=== PATIENT | female | born 1955 | race Caucasian/White ===

== ENCOUNTER 2016-06-01 10:22 | Emergency (ER) | payer OTHER ==
[~2016-06-01] VITALS: Ht 167.6 cm; Wt 115.0 kg
[2016-06-01 10:37] VITALS: TEMP 37.1; Ht 167.6 cm; Wt 115.0 kg
[2016-06-01] MEDS ORDERED: MULT-506 PO (10:50)
--- NOTE | 2016-06-01 11:27 | DIAGNOSTIC IMAGING REPORT ---
RIGHT ANKLE MIN 3 VIEWS ROUTINE CLINICAL HISTORY: right ankle pain Right trauma. Pain. COMPARISON: None. DISCUSSION: Bimalleolar fracture right ankle. Nondisplaced oblique fracture distal fibula. Mildly distracted fracture medial malleolus. No significant disruption of the ankle mortise. Generalized soft tissue edema. Heel spur. Generalized soft tissue edema IMPRESSION: Bimalleolar fracture Electronically signed by: Dilshad Schwab M.D. 06/01/2016 11:26 AM Dictated Date/Time: 06/01/2016 11:25 AM
[2016-06-01] MEDS ORDERED: HYDR-5688 PO (11:49)
[2016-06-01 12:15] VITALS: BP 186/78; PULSE 76; O2SAT 97
--- NOTE | 2016-06-01 17:34 | EMERGENCY ROOM VISIT NOTE ---
ED Visit Note First contact with patient: 10:45 Chief complaint: Right ankle pain. HPI: This 60-year-old white female presents to the emergency room for evaluation of her right ankle. The patient injured the ankle last night when she was walking down the basement steps. She fell down the last 2 steps and twisted the ankle. She is unsure of the exact position. She believes she heard a crack. She thought the ankle would get better overnight, but it has not. Swelling has developed. Since that time, they have had persistent pain over the medial and lateral portion of the ankle. She denies any numbness or tingling. Pain is worse with weight-bearing. She has been walking with a limp. no knee or hip pain. Her accompanies her today. Treatment has consisted of ice provided in the ER. No prior history of significant ankle injury. Pain is 6/10. REVIEW OF SYSTEM: HEENT: No dizziness, visual problems, hearing loss, tinnitus. There is no difficulty swallowing and no oral lesions are present. LYMPH: No adenopathy. PULMONARY: No cough, shortness of breath, sputum production or hemoptysis. CARDIOVASCULAR: No chest pain, palpitations, shortness of breath or peripheral edema. GASTROINTESTINAL: No diarrhea, constipation, nausea, vomiting, or abdominal pain. GENITOURINARY: No dysuria, frequency, urgency or nocturia. NEUROLOGIC: No weakness, muscle tenderness, epilepsy or history of neurological problems. MUSCULOSKELETAL: No history of joint tenderness/swelling. No history of arthritis or arthralgias. SKIN: No rashes or lesions. ENDOCRINE: No history of diabetes, thyroid disorders, abnormal hair growth. PAST MEDICAL HISTORY: Supplemental sheet was reviewed. Previous surgeries: None Medical history: Significant for obesity and hypertension Current medications: Ibuprofen and Zestoretic Allergies: known allergy to Naprosyn Family history: Noncontributory. Social history: . No tobacco use. Employed. PHYSICAL EXAM: Vitals: Afebrile. Reviewed and filed in patient's chart General: Well-developed, well-nourished, middle-aged white female, in obvious discomfort. No acute distress. She is sitting in a wheelchair. Alert and oriented. Skin:Warm and dry with good turgor. No rashes or lesions. No erythema. The patient is not diaphoretic. No abrasions. Edema is present over the ankle and foot. Musculoskeletal: Right ankle evaluation reveals no pain with palpation across the knee or proximal tibia or fibula. There is pain with palpation over the lateral malleolus and the lateral ligaments. There is also pain over the medial malleolus and deltoid ligament. Achilles' tendon is palpated through its entirety and found to be intact and without defect. Normal Gauthier test. No pain with palpation of the calcaneus, fifth metatarsal base, midfoot, forefoot, or toes. Motor function to the toes is intact and unremarkable. Motor function to the ankle is intact but range of motion is limited by pain. Strength is 5/5 for resisted motion. Drawer and tilt testing were not attempted. Neurologic: Gross sensation is intact across all aspects of the foot and ankle via soft touch. Peripheral pulses are 2+. Data: Radiographic images of the ankle were obtained today and were reviewed by me as well as radiology. They are positive for bimalleolar fracture with slight widening of the mortise. IMPRESSION: Right ankle bimalleolar fracture PLAN: The patient was educated regarding today's findings. Conservative care measures were discussed. Patient was placed in a well-padded posterior and coaptation splint for protection. This must remain in place at all times. She will keep it dry. Splint placement was under my direct supervision and neurovascular status was checked before and after splint placement. A walker was provided and walker instruction was reviewed. Strict nonweightbearing on the right side. Gentle toe motion daily. Ice and elevate intermittently over the next 3 days, after which she may switch to moist heat. Lower leg should be elevated at night during sleep. Tylenol and ibuprofen every 6 hours as needed for discomfort. Perception was provided for [place] 5 mg to be used for more severe pain. Cast care precautions were provided. Return to the ER for any acute changes. Follow-up with her orthopedist this week to discuss surgical intervention. Current/Historical Medications Scheduled Fish Oil ([place]-3), 4 CAP PO DAILY Lisinopril/Hctz (Zestoretic 20MG/12.5MG), 1 TAB PO QAM Multivitamin (Multivitamin), 1 TAB PO DAILY Scheduled PRN Hydrocodone/Acetaminophen 5MG/325MG ([place] 5MG/325MG), 1-2 TABLET PO Q6H PRN for Pain Allergies Coded Allergies: Naproxen (Verified Allergy, Intermediate, HIVES, 06/01/16) Vital Signs Date Time Temp Pulse Resp B/P Pulse Ox O2 Delivery O2 Flow Rate FiO2 06/01/16 12:15 76 186/78 97 Room Air 06/01/16 10:37 37.1 76 16 162/92 97 Room Air Departure Information Impression Primary Impression: Bimalleolar fracture of right ankle Dispostion Home / Self-Care Condition GOOD Prescriptions Hydrocodone/Acetaminophen 5MG/325MG ([place] 5MG/325MG) Tab 1-2 TABLET PO Q6H Y for Pain, #20 TAB For Initial Treatment Prov: Sandip Gonzalez,P.A. 06/01/16 Referrals Vlad Canada V.D.O. Forms CARE OF CASTS, WORK / SCHOOL INSTRUCTIONS, HOME CARE DOCUMENTATION FORM, SPECIAL NARCOTICS INSTRUCTIONS, TYLENOL USE, IMPORTANT VISIT INFORMATION Patient Instructions My [facility] Additional Instructions Ice and elevate frequently to reduce pain and swelling Keep the splint on at all times and keep it dry Use your walker for any ambulation-no weight on the right leg Call Dr. Canada tomorrow for follow-up this week Tylenol every 6 hours as needed for mild discomfort Subsequent to [place] one to 2 tablets every 6 hours as needed for more severe pain
[2016-06-02] MEDS ORDERED: [UNRECOGNIZED DRUG - CODE] PO (15:47)
[2016-06-02] MEDS ORDERED: PERCOCET PO (15:47)
[2016-06-04] MEDS ORDERED: ASPEC325 PO (11:52)
[2016-07-14] MEDS ORDERED: OMEG10007 PO ×2 (10:50→17:01)
[2016-07-14] MEDS ORDERED: LISI-787 PO (10:50)
[2016-07-16] MEDS ORDERED: XRL10 PO ×2 (13:03→17:52)
== END 2016-06-01 12:23 | disposition home or self-care (01) ==
LOC: C.EDB 10:26 → C.EDD 12:23
DX: S82.841A Displaced bimalleolar fracture of right lower leg, initial encounter for closed fracture (principal); W10.8XXA Fall (on) (from) other stairs and steps, initial encounter; I10 Essential (primary) hypertension; Z79.899 Other long term (current) drug therapy; Z88.8 Allergy status to other drugs, medicaments and biological substances

== ENCOUNTER → 2016-06-02 | Outpatient (CLI) | payer OTHER ==
[~2016-06-02] MED LIST: ASPEC325 PO; ASPI325T45 PO; HYDR-5688 PO; IBUP1CAP9 PO; LISI-787 PO; LUTE1CAP6 PO; MULT-506 PO; MULTTAB45 PO; OMEG10007 PO; PERCOCET PO; SELE50TA PO; XRL10 PO; [UNRECOGNIZED DRUG - CODE] PO
[2016-06-02 14:42] LABS: BASO % 0.4 %; BASO ABS # 0.03 K/uL (0-0.2); COMPLETE YES; EOS % 1.1 %; HEMATOCRIT 40.9 % (37-47); IG% 0.1 %; LYMPH % 27.6 %; LYMPH ABS # 2.25 K/uL (1.2-3.4); MEAN CELL VOLUME 91.9 fL (80-100); MEAN CORPUSCULAR HGB CONC 33.7 g/dl (32-36); MEAN PLATELET VOLUME 10.9 fL (7.4-10.4); MONO % 5.3 %; NEUT % 65.5 %; PLATELET COUNT 237 K/uL (130-400); RED BLOOD COUNT 4.45 M/uL (4.2-5.4); WHITE BLOOD COUNT 8.15 K/uL (4.8-10.8)
[2016-06-02 15:18] LABS: BLOOD UREA NITROGEN 15 mg/dl (7-18); BUN/CREATININE RATIO 18.2 (10-20); CALCIUM 9.2 mg/dl (8.5-10.1); CARBON DIOXIDE 28 mmol/L (21-32); CHLORIDE 106 mmol/L (98-107); CREATININE 0.85 mg/dl (0.60-1.20); GLUCOSE 99 mg/dl (70-99); POTASSIUM 4.1 mmol/L (3.5-5.1); SODIUM 144 mmol/L (136-145)
== END | disposition home or self-care (01) ==
LOC: C.CPL 13:50
PROVIDERS: ATTEND Orthopaedic Surgery Sports Medicine
DX: Z01.818 Encounter for other preprocedural examination (principal); S82.841A Displaced bimalleolar fracture of right lower leg, initial encounter for closed fracture; X58.XXXA Exposure to other specified factors, initial encounter

== ENCOUNTER → 2016-06-04 | Day surgery (SDC) | payer OTHER ==
[2016-06-02 15:47] VITALS: Ht 174 cm; Wt 113.6 kg
[~2016-06-04] VITALS: Ht 174 cm; Wt 113.6 kg
[~2016-06-04] MED LIST changes: +ATROPINE SULFATE 0.1 MG/ML 5ML SYR IV PRN; +BUPIVACAINE/EPINEPHRINE 0.5% MPF 1:200,000 30 ML VIAL ONE; +CEFAZOLIN 2000 MG/60 ML D5W IV SCH; +CEFAZOLIN SOD 1 GM VIAL IV ONE; +DEXAMETHASONE SOD INJ 4 MG/ML VIAL ONE; +EpHEDrine SULFATE INJ 50 MG/ML AMP IV PRN; +FENTANYL CITRATE INJ 50 MCG/1 ML 2 ML VIAL ONE; -HYDR-5688 PO; +LACTATED RINGER'S 1000ML 1,000 ML IV SCH; +LIDOCAINE HCL 2% 2 ML VIAL (20MG/ML) ONE; +MIDAZOLAM HCL 1 MG/ML 2ML VIAL ONE; -MULT-506 PO; +ONDANSETRON INJ 2 MG/ML 2 ML VIAL ONE; +OXYCODONE/ACETAMINOPHEN 5-325 TAB PO PRN; +PROPOFOL IV EMULSION 10 MG/ML 20 ML VIAL IV ONE; +SODIUM CHLORIDE 0.9% 1000ML 1,000 ML IV SCH
--- NOTE | 2016-06-04 10:08 | History & Physical Bridge - SC ---
H&P Re-Evaluation Bridge Note: I have examined the patient, reviewed the History & Physical and in the interval since the performance of the History & Physical I have noted the following changes of clinical significance: No changes noted
--- NOTE | 2016-06-04 11:53 | [facility] Post Operative Brief Note ---
Immediate Operative Summary Operative Date Jun 04, 2016. Pre-Operative Diagnosis Right Ankle Bimalleolar Fracture Post-Operative Diagnosis Same Procedure(s) Performed Right Ankle Open Reduction Internal Fixation - Bimalleolar ankle fracture Surgeon Dr. Parr Electrocardiograph Operator Surgeon(s) Nora Hernandez PA-C Estimated Blood Loss 20 ml Findings Bimalleolar ankle fracture Specimens None Anesthesia General Complication(s) None Disposition Recovery Room / PACU
--- NOTE | 2016-06-04 11:54 | Discharge Instructions-SurgCtr ---
Discharge Instructions Visit Reason for Visit: Bi Malleolar Fracture Right Ankle Discharge Discharge Diagnosis / Problem: bimalleolar ankle fx, right Discharge Goals Goal(s): Improve function, Therapeutic intervention Activity Recommendations Activity Limitations: per Instructions/Follow-up section Weightbearing Status: Right non-weightbearing Anesthesia . Post Anesthesia Instructions: If you have had General Anesthesia or IV Sedation: * Do not drive today. * Resume driving when surgeon permits. * Do not make important decisions or sign legal documents today. * Call surgeon for: 1. Temperature elevations greater than 101 degrees F. 2. Uncontrollable pain. 3. Excessive bleeding. 4. Persistent nausea and vomiting. 5. Medication intolerance (nausea, vomiting or rash). * For nausea and vomiting use only clear liquids such as: tea, soda, bouillon until nausea subsides, then gradually increase diet as tolerated. * If you have any concerns or questions, call your surgeon's office. If physician is unavailable and it is an emergency, call 911 or go to the nearest emergency room. . Instructions / Follow-Up Instructions / Follow-Up MEDICATIONS: * Resume previous medications unless instructed otherwise by your surgeon. * Always take pain medication on a full stomach or with food to avoid upset stomach. * Do not drink alcohol or drive while taking narcotics. * Ibuprofen or Tylenol may be taken if narcotic not needed. SPECIAL CARE INSTRUCTIONS: __ None _x_ Keep extremity elevated and iced x 48 hours; apply ice 20-30 minutes 8-10 times/day. May remove at night. __ Crutches __ May discard when able __ Brace/Post-op shoe __ 24 hrs/day __ Remove at night _x_ Dressing _x_ Maintain until seen in office, may shower with plastic over site __ Remove dressings in 24-48 hours and then may shower __ Cover incisions with band-aids after showering __ Do not remove steri-strips Call physician if chills or temperature rises above 102 degrees or pain unrelieved by prescribed pain medications. Office [phone] follow up in 2 weeks Diet Recommendations Home Diet: resume previous diet Procedures Procedures Performed: Right Ankle Open Reduction Internal Fixation Pending Studies Studies pending at discharge: no Medical Emergencies . Who to Call and When: Medical Emergencies: If at any time you feel your situation is an emergency, please call 911 immediately. . Non-Emergent Contact Non-Emergency issues call your: Primary Care Provider, Surgeon . . "Provider Documentation" section prepared by Gilbert Hernandez.
[2016-06-04] MEDS: FENTANYL CITRATE INJ 50 MCG/1 ML 2 ML VIAL IV PRN ×3 (12:05→12:21)
--- NOTE | 2016-06-04 12:28 | Anesthesia Progress Nt - [facility] ---
Anesthesia Post Op Note Date & Time Jun 04, 2016 at 12:29 Vital Signs Pain Intensity: 4 Vital Signs Past 12 Hours Date Time Temp Pulse Resp B/P Pulse Ox O2 Delivery O2 Flow Rate FiO2 06/04/16 11:48 36.6 91 16 166/94 100 Mask 6 06/04/16 09:29 36.9 94 16 172/106 98 Room Air Notes Mental Status: alert / awake / arousable, participated in evaluation Pt Amnestic to Procedure: Yes Nausea / Vomiting: adequately controlled Pain: adequately controlled Airway Patency, RR, SpO2: stable & adequate BP & HR: stable & adequate Hydration State: stable & adequate Anesthetic Complications: no major complications apparent
[2016-06-04 12:39] VITALS: TEMP 36.6
[2016-06-04 13:29] VITALS: BP 138/76; PULSE 91; O2SAT 95
--- NOTE | 2016-06-04 14:20 | OPERATIVE REPORT ---
DATE OF OPERATION: 06/04/2016 PREOPERATIVE DIAGNOSIS: Right bimalleolar ankle fracture. POSTOPERATIVE DIAGNOSIS: Same. PROCEDURE PERFORMED: Open reduction and internal fixation of right bimalleolar ankle fracture. SURGEON: Scotty Parr M.D. LIFE EDUCATOR: Gilbert Hernandez PA-C. COMPLICATIONS: None. ESTIMATED BLOOD LOSS: 20 mL. TOURNIQUET TIME: 54 minutes at 300 mmHg. ANESTHESIA: General. SPECIMENS: None. OPERATIVE INDICATIONS: The patient is a 60-year-old female who injured her ankle over the weekend. She fell down a couple steps. She had acute onset of pain. She waited until the next day and went to the ER. X-ray revealed a bimalleolar ankle fracture. She was splinted and referred to our clinic. The patient is indicated for surgical treatment. OPERATIVE IMPLANTS: Medial sided implants consisted of: 1. 4.0 partially threaded long threaded cannulated screws with washers x2. Lateral side implants consisted of: 1. A Synthes 6-hole stainless steel 1/3 semitubular plate. 2. A 4.0 fully threaded cancellous screws x 2. 3. At 3.5 fully threaded cortical screws x3. 4. A 4.0 partially threaded cancellous screw x1. OPERATIVE PROCEDURE: The patient taken to the operating room, identified and placed on the operating table in supine position. All contact areas were appropriately padded. IV antibiotics were provided by the anesthesia team. A general anesthetic was implemented by anesthesia team. Right thigh tourniquet was then placed. The splint on the right lower extremity was then removed. I then scrubbed the entire leg up with Hibiclens. We then prepped it with ChloraPrep and then draped the foot and ankle out in a sterile fashion. The right leg was elevated and exsanguinated with Esmarch and tourniquet was placed at 300 mmHg. Attention was first drawn to the medial side. A slightly curved radial curvilinear incision was made directly over the medial malleolus. Sharp dissection was carried down through the subcutaneous tissues taking great care to protect the saphenous vein and nerve. An incision was made in the periosteum. The fracture site was easily visible. There was some periosteum in the fracture site which we had to remove. We removed the clot from the fracture site. I irrigated the wound extensively. I then reduced this and held it with a reduction clamp and placed 2 wires across the fracture site. This was verified fluoroscopically. I then placed 2 partially threaded long threaded cannulated screws over the 2 wires in a parallel fashion perpendicular to the fracture site. We did use washers with both of these screws to maximize compression as her bone was a little bit soft. I got good purchase. X-ray was checked and hardware was in appropriate position. Attention was then drawn toward the lateral side. A direct lateral approach to the fibula was then performed through a longitudinal incision over the fibula. Sharp dissection was carried out through the subcutaneous tissue directly down to the fibula. The fracture was easily identified. It was cleaned of clot. I then reduced this and held it with a reduction clamp. I fixed it with a single 4.0 partially threaded cancellous screw placed in a lag fashion across the fracture site from anterior to posterior. This provided excellent compression. I then contoured a 6-hole 1/3 semitubular plate to the lateral fibula and fixed it proximally with three 3.5 fully threaded cortical screws and then distally with two 4.0 fully threaded cancellous screws. X-ray was brought in. All hardware was appropriately positioned. I stressed the ankle and it was stable. Attention was then drawn toward closing. The wound was irrigated with copious amounts of normal saline. I did inject locally with 30 mL of 0.5% Marcaine with epinephrine. The periosteum over the fibula plate was closed with 2-0 Vicryl suture in a buried interrupted fashion. The tourniquet was then let down for final tourniquet time of 54 minutes. Hemostasis was assured with use of electrocautery. The subcutaneous tissues of both wounds were then closed with 2-0 Vicryl suture in a buried interrupted fashion. Skin was closed with 3-0 nylon suture in a horizontal mattress fashion. The leg was then cleaned and dried and a sterile dressing of Xeroform, 4 x 4, sterile cast padding and a well-padded posterior and stirrup splint were applied. The patient then brought out of general anesthesia and transferred to the recovery room in stable condition. The patient tolerated the procedure with no complications. All needle and sponge counts were correct at the end of the operation. I attest to the content of the Intraoperative Record and any orders documented therein. Any exceptions are noted below. ROMAND
== END | disposition home or self-care (01) ==
LOC: X.SURG 09:15
PROVIDERS: ATTEND Orthopaedic Surgery Sports Medicine
DX: S82.841A Displaced bimalleolar fracture of right lower leg, initial encounter for closed fracture (principal); W10.9XXA Fall (on) (from) unspecified stairs and steps, initial encounter; I10 Essential (primary) hypertension; E66.9 Obesity, unspecified; Z68.38 Body mass index [BMI] 38.0-38.9, adult

== ENCOUNTER 2016-07-14 12:45 | Inpatient (IN) | payer OTHER ==
[~2016-07-14] VITALS: Ht 172.7 cm; Wt 117.8 kg
[~2016-07-14 12:45] MED LIST changes: -ASPI325T45 PO; -ATROPINE SULFATE 0.1 MG/ML 5ML SYR IV PRN; -BUPIVACAINE/EPINEPHRINE 0.5% MPF 1:200,000 30 ML VIAL ONE; -CEFAZOLIN 2000 MG/60 ML D5W IV SCH; -CEFAZOLIN SOD 1 GM VIAL IV ONE; -DEXAMETHASONE SOD INJ 4 MG/ML VIAL ONE; -EpHEDrine SULFATE INJ 50 MG/ML AMP IV PRN; -FENTANYL CITRATE INJ 50 MCG/1 ML 2 ML VIAL ONE; -IBUP1CAP9 PO; -LACTATED RINGER'S 1000ML 1,000 ML IV SCH; -LIDOCAINE HCL 2% 2 ML VIAL (20MG/ML) ONE; -LUTE1CAP6 PO; -MIDAZOLAM HCL 1 MG/ML 2ML VIAL ONE; -MULTTAB45 PO; -ONDANSETRON INJ 2 MG/ML 2 ML VIAL ONE; -OXYCODONE/ACETAMINOPHEN 5-325 TAB PO PRN; -PROPOFOL IV EMULSION 10 MG/ML 20 ML VIAL IV ONE; -SELE50TA PO; -SODIUM CHLORIDE 0.9% 1000ML 1,000 ML IV SCH; -XRL10 PO
--- NOTE | 2016-07-14 13:37 | EMERGENCY ROOM VISIT NOTE ---
History First contact with patient: 12:55 Chief Complaint: LEG PAIN,LEG INJURY Stated Complaint: POSSIBLE BLOOD CLOT IN R CAST LEG History of Present Illness The patient is a 60 year old female who presents to the Emergency Room with complaints of right leg pain. The patient had an ankle fracture 4 weeks ago. She underwent surgery by Dr. Parr. She has been doing very well. She states that over the last several days she noticed pain and tenderness to the right medial thigh. The patient denies any pain at rest. The pain is worse with movement. She reports a history of superficial thrombophlebitis 10 years ago. She denies any redness, fevers, drainage. She denies any numbness or tingling. She denies any significant pain in the ankle. She denies any chest pain or trouble breathing. Review of Systems A 10 system review of systems was completed with positives and pertinent negatives listed in the HPI. Past Medical/Surgical History Medical Problems: (1) Hypertension Bimalleolar fracture of right ankle Social History Smoking Status: Never Smoker Housing Status: lives with family Current/Historical Medications Scheduled Fish Oil ([place]-3), 4 CAP PO QAM Lisinopril/Hctz (Zestoretic 20MG/12.5MG), 1 TAB PO QAM Lutein (Lutein), 1 TAB PO DAILY Allergies Coded Allergies: Naproxen (Verified Allergy, Intermediate, HIVES, 07/14/16) Physical Exam Vital Signs Date Time Temp Pulse Resp B/P Pulse Ox O2 Delivery O2 Flow Rate FiO2 07/14/16 14:58 90 18 168/84 100 Room Air 07/14/16 12:50 36.5 74 18 170/88 98 Room Air Physical Exam VITALS: Vitals are noted on the nurse's note and reviewed by myself. Vital signs stable. The patient is afebrile. She is not tachycardic or tachypneic. Her oxygen saturation is 98% on room air. GENERAL: This is a 60-year-old female, in no acute distress, nondiaphoretic, well-developed well-nourished. SKIN: The right leg is in a cast to the mid calf. The skin was without rashes, erythema, edema, or bruising. There is no tenting of the skin. Capillary reflex less than 2 seconds. HEAD: Normocephalic atraumatic. EARS: The external ears are normal in appearance. EYES: Pupils equal round and reactive to light and accommodation. Conjunctivae without injection, sclerae without icterus. Extraocular movements intact. NOSE: Patent, turbinates without inflammation or discharge. MOUTH: Mucous membranes moist. Tonsils are not enlarged. Pharynx without erythema or exudate. Uvula midline. Airway patent. Tongue does not deviate. NECK: Supple without nuchal rigidity. No JVD. HEART: Regular rate and rhythm without murmurs gallops or rubs. LUNGS: Clear to auscultation bilaterally without wheezes, rales or rhonchi. No retractions or accessory muscle use. MUSCULOSKELETAL: No muscle atrophy, erythema, or edema noted. There is a cast on the right leg to the mid calf. There is no erythema, warmth or palpable cord in the area of pain. She does have pain with adduction against resistance. There is no pain with abduction. There is no pain, tenderness or swelling of the knee or the calf that is visible. NEURO: Patient was alert and oriented to person place and time. Normal sensation to light and sharp touch.No focal neurological deficits. Medical Decision & Procedures ER Provider Diagnostic Interpretation: RIGHT LOWER EXTREMITY VENOUS DOPPLER HISTORY: right medial thigh pain Right COMPARISON STUDY: None. FINDINGS: The right calf veins were obscured by the patient's overlapping cast. There are superficial thrombosed veins within the right popliteal fossa. Near occlusive thrombus seen within the right superficial femoral and right popliteal veins. The right proximal greater saphenous vein is also thrombosed. The right common femoral vein is patent. IMPRESSION: Superficial and deep vein thrombosis within the right lower extremity as described above. Laboratory Results Test 07/14/16 16:23 ED Course The patient was seen and examined. Previous visits were reviewed. The patient had surgery on her ankle 5 weeks ago. She states that since mid week last week he has had pain in the right lower extremity into the right medial thigh. She has a history of superficial thrombophlebitis in the remote past. She underwent ultrasound which reveals extensive right lower extremity DVT. She does not have any chest pain, trouble breathing, hypoxia or tachycardia. Due to the extensive nature of the DVT, she would benefit from further evaluation and management in the hospital. At this time, laboratory studies and IV were ordered. [facility] the patient. The patient was also seen and examined by who agrees with the assessment and treatment plan. Medical Decision The differential diagnosis includes DVT, superficial, phlebitis, muscle strain, among others Impression Primary Impression: DVT (deep venous thrombosis) Departure Information Referrals Dilshad Atkinson M.D. (PCP) Patient Instructions My [facility] Problem Qualifiers Primary Impression: DVT (deep venous thrombosis)
--- NOTE | 2016-07-14 15:42 | DIAGNOSTIC IMAGING REPORT ---
RIGHT LOWER EXTREMITY VENOUS DOPPLER HISTORY: right medial thigh pain Right COMPARISON STUDY: None. FINDINGS: The right calf veins were obscured by the patient's overlapping cast. There are superficial thrombosed veins within the right popliteal fossa. Near occlusive thrombus seen within the right superficial femoral and right popliteal veins. The right proximal greater saphenous vein is also thrombosed. The right common femoral vein is patent. IMPRESSION: Superficial and deep vein thrombosis within the right lower extremity as described above. Electronically signed by: Alexey Ybarra M.D. 07/14/2016 3:41 PM Dictated Date/Time: 07/14/2016 3:39 PM
[2016-07-14] MEDS ORDERED: LUTE1CAP6 PO (15:47)
--- NOTE | 2016-07-14 16:00 | EMERGENCY ROOM VISIT NOTE ---
ED Visit Note First contact with patient: 15:53 The patient was seen and examined with Lori Young PA-C. I agree with the history, physical and findings. Please see the note for disposition and details.
[2016-07-14 16:46] LABS: BASO % 0.2 %; BASO ABS # 0.02 K/uL (0-0.2); COMPLETE YES; EOS % 1.4 %; HEMATOCRIT 40.8 % (37-47); IG% 0.3 %; LYMPH ABS # 3.03 K/uL (1.2-3.4); MEAN CELL VOLUME 93.2 fL (80-100); MEAN CORPUSCULAR HEMOGLOBIN 31.5 pg (25-34); MEAN CORPUSCULAR HGB CONC 33.8 g/dl (32-36); MEAN PLATELET VOLUME 10.5 fL (7.4-10.4); NEUT % 64.1 %; PLATELET COUNT 251 K/uL (130-400); RED BLOOD COUNT 4.38 M/uL (4.2-5.4); WHITE BLOOD COUNT 10.11 K/uL (4.8-10.8)
[2016-07-14 16:56] LABS: PROTHROMBIN TIME (PATIENT) 10.4 SECONDS (9.0-12.0)
[2016-07-14] MEDS ORDERED: ASPI325T45 PO (17:01)
[2016-07-14] MEDS ORDERED: OMEG10007 PO (17:01)
[2016-07-14] MEDS ORDERED: SELE50TA PO (17:01)
[2016-07-14] MEDS ORDERED: MULTTAB45 PO (17:01)
[2016-07-14] MEDS ORDERED: IBUP1CAP9 PO (17:01)
[2016-07-14 17:07] LABS: BUN/CREATININE RATIO 20.7 (10-20); CALCIUM 9.2 mg/dl (8.5-10.1); CREATININE 0.87 mg/dl (0.60-1.20); POTASSIUM 3.9 mmol/L (3.5-5.1)
[2016-07-14] MEDS ORDERED: ONDANSETRON INJ 2 MG/ML 2 ML VIAL IV PRN (17:15)
[2016-07-14] MEDS ORDERED: HEPARIN SOD (PORCINE) 1000 UNIT/ML 10 ML VIAL ONE (18:02)
[2016-07-14] MEDS ORDERED: HEPARIN 25000 UNIT/500 ML D5W ONE (18:02)
--- NOTE | 2016-07-14 18:03 | History and Physical ---
History & Physical Date & Time of Service: Jul 14, 2016 at 17:02 Chief Complaint: Possible Blood Clot In R Cast Leg Primary Care Physician: Dilshad Atkinson M.D. History of Present Illness Source: patient, clinic records This is a 60 year old female with PMH of superficial thrombophlebitis, GERD, anxiety, who presents to the ED for RLE discomfort. Patient recently underwent ORIF of right ankle fracture by Dr. Parr on 06/04/16. She was initially non- weight bearing x3 weeks but now ambulating around her house in a walking cast. Pt reports for past 5 days has discomfort in right inner thigh. She tried using compresses, PRN ibuprofen, and aspirin 650 mg daily. She initially was concerned for superficial thrombophlebitis which she had 5-7 episodes in the past. She is unsure if she was tested for hypercoagulable state. Had 1 episode trace red blood in the stool today after straining for hard BM last night. No black stool. States bowel habit alternates constipation and diarrhea. Reports h/ o hemorrhoids. Last colonoscopy in 2007 with hyperplastic polyps. Pt also reports rhinorrhea, itchy watery eyes, dry cough in the mornings attributed to seasonal allergies. Patient denies dizziness, fever, chills, chest pain, SOB, abdominal pain, nausea, vomiting, urinary changes, lower extremity edema. Past Medical/Surgical History Medical Problems: (1) Anxiety Status: Chronic (2) Benign neoplasm of colon Status: Chronic (3) Depression Status: Chronic (4) S/P ORIF (open reduction internal fixation) fracture Permanent Comment: right ankle 06/04/16 Dr. Parr Status: Chronic (5) Superficial thrombophlebitis Status: Chronic Surgical Problems: (1) S/P colonoscopy with polypectomy Status: Chronic (2) S/P dilation and curettage Status: Chronic Family History Asthma Hypertension MOTHER BROTHER SISTER Denies family history of VTE. Social History Smoking Status: Never Smoker Alcohol Use: none Drug Use: none Marital Status: Housing status: lives with family Multi-Drug Resistant Organisms History of MDRO: No Allergies Coded Allergies: Naproxen (Verified Allergy, Intermediate, HIVES, 07/14/16) Home Medications Scheduled Aspirin (Aspirin), 650 MG PO DAILY Fish Oil (Ione-3), 6 CAP PO DAILY Lisinopril/Hctz (Zestoretic 20MG/12.5MG), 1 TAB PO QAM Lutein (Lutein), 1 TAB PO DAILY Multiple Vitamin (Multiple Vitamin), 1 TAB PO DAILY Selenium (Ra Selenium), 3 TABS PO DAILY Scheduled PRN Ibuprofen (Ibuprofen), 400 MG PO Q6 PRN for Pain Review of Systems Ten point ROS performed with pertinent positives and negatives noted in HPI. Physical Exam Vital Signs Date Time Temp Pulse Resp B/P Pulse Ox O2 Delivery O2 Flow Rate FiO2 07/14/16 14:58 90 18 168/84 100 Room Air 07/14/16 12:50 36.5 74 18 170/88 98 Room Air General Appearance: + obese, + pertinent finding (alert cooperative mildly anxious 60 year old female with at bedside who is supportive) Head: normocephalic, atraumatic Eyes: normal inspection, PERRL ENT: hearing grossly normal, TMs normal, pharynx normal Neck: supple, trachea midline Respiratory/Chest: lungs clear, normal breath sounds, no respiratory distress, no accessory muscle use Cardiovascular: regular rate, rhythm, no murmur Abdomen/GI: normal bowel sounds, non tender, soft Extremities/Musculoskelatal: + pertinent finding (no reproducible tenderness on right upper thigh. no palpable cord. no swelling noted of right upper leg. right lower leg cast in place. LLE no edema or calf tenderness. ) Neurologic/Psych: alert, normal mood/affect, oriented x 3, + pertinent finding (grossly nonfocal ) Skin: normal color, warm/dry Diagnostics Laboratory Results Results Past 24 Hours Test 07/14/16 16:23 Range/Units White Blood Count 10.11 4.8-10.8 K/uL Red Blood Count 4.38 4.2-5.4 M/uL Hemoglobin 13.8 12.0-16.0 g/dL Hematocrit 40.8 37-47 % Mean Corpuscular Volume 93.2 80-100 fL Mean Corpuscular Hemoglobin 31.5 25-34 pg Mean Corpuscular Hemoglobin Concent 33.8 32-36 g/dl Platelet Count 251 130-400 K/uL Mean Platelet Volume 10.5 7.4-10.4 fL Neutrophils (%) (Auto) 64.1 % Lymphocytes (%) (Auto) 30.0 % Monocytes (%) (Auto) 4.0 % Eosinophils (%) (Auto) 1.4 % Basophils (%) (Auto) 0.2 % Neutrophils # (Auto) 6.49 1.4-6.5 K/uL Lymphocytes # (Auto) 3.03 1.2-3.4 K/uL Monocytes # (Auto) 0.40 0.11-0.59 K/uL Eosinophils # (Auto) 0.14 0-0.5 K/uL Basophils # (Auto) 0.02 0-0.2 K/uL RDW Standard Deviation 44.8 36.4-46.3 fL RDW Coefficient of Variation 13.2 11.5-14.5 % Immature Granulocyte % (Auto) 0.3 % Immature Granulocyte # (Auto) 0.03 0.00-0.02 K/uL Prothrombin Time 10.4 9.0-12.0 SECONDS Prothromb Time International Ratio 1.0 0.9-1.1 Activated Partial Thromboplast Time 27.1 21.0-31.0 SECONDS Partial Thromboplastin Ratio 1.0 Diagnostic Radiology RIGHT LOWER EXTREMITY VENOUS DOPPLER HISTORY: right medial thigh pain Right COMPARISON STUDY: None. FINDINGS: The right calf veins were obscured by the patient's overlapping cast. There are superficial thrombosed veins within the right popliteal fossa. Near occlusive thrombus seen within the right superficial femoral and right popliteal veins. The right proximal greater saphenous vein is also thrombosed. The right common femoral vein is patent. IMPRESSION: Superficial and deep vein thrombosis within the right lower extremity as described above. Impression Assessment and Plan EXTENSIVE RLE DVT Most likely provoked by recent ORIF right ankle 06/04/[address] Parr Hypercoagulable workup pending Start on IV heparin Will likely need 3 months of anticoagulation May be candidate for factor Xa inhibitor RECENT ANKLE SURGERY Currently in walking cast Consult Dr. Parr HYPERTENSION BP elevated in ER likely due to anxiety Continue lisinopril-HCTZ ANXIETY/ DEPRESSION Not on medication currently FULL CODE Patient seen in collaboration with Dr. Weldon. Please see his addendum.
--- NOTE | 2016-07-14 18:19 | Progress Note ---
Progress Note Date of Service Jul 14, 2016. Progress Note ATTENDING ADDENDUM care coordinated with EMMANUEL Hill please refer to her notes for full details, I agree with her notes patient seen and examined, records reviewed by myself as well on exam, patient seen sitting up in bed, comfortable has mild right inguinal discomfort, no leg pain denies chest pain, dyspnea, palpitations, dizziness no other symptoms VS noted and reviewed oriented x 3, not in distress, speaks in sentences with no effort nor accessory muscle use normal rate, regular rhythm, no murmurs clear breath sounds bilaterally non distended, soft, nontender right leg: no swelling, erythema, tenderness cast in place left leg: no swelling, erythema, tenderness no bipedal edema, erythema, warmth no neuro deficits Hg 13.8 Crea 0.87 Leg US: FINDINGS: The right calf veins were obscured by the patient's overlapping cast. There are superficial thrombosed veins within the right popliteal fossa. Near occlusive thrombus seen within the right superficial femoral and right popliteal veins. The right proximal greater saphenous vein is also thrombosed. The right common femoral vein is patent. IMPRESSION: Superficial and deep vein thrombosis within the right lower extremity as described above. ASSESSMENT/PLAN> DVT RIGHT POPLITEAL, GREATER SAPHENOUS VEINS s/p Ankle Surgery 05/2016 (+) history of DVT- mother (post op) hypercoagulable work up pending Heparin standard with bolus patient prefers to be transitioned to New oral anticoagulants Dr. Parr - Tim consulted as well HYPERTENSION improving continue HCTZ/Lisinopril other diagnoses and plan of care as per EMMANUEL Hill's notes Ad Weldon MD
[2016-07-14 19:43] VITALS: BP 175/81; PULSE 97; TEMP 37; O2SAT 99
[2016-07-14 21:35] VITALS: Ht 172.7 cm; Wt 117.8 kg
[2016-07-14 22:30] VITALS: BP 160/90
[2016-07-14 22:53] VITALS: BP 143/83; PULSE 78; TEMP 36.8; O2SAT 97
[2016-07-14] MEDS: ACETAMINOPHEN 325 MG TAB PO PRN (22:58)
[2016-07-14] MEDS: HEPARIN 25,000 UNIT/500ML D5W 500 ML IV PRN (23:01)
[2016-07-14] MEDS ORDERED: DiphenhydrAMINE HCL 12.5MG/5 ML UDC PO STA (23:01)
[2016-07-15 01:22] LABS: PARTIAL THROMBOPLASTIN RATIO 2.2
[2016-07-15] MEDS: ACETAMINOPHEN 325 MG TAB PO PRN ×2 (05:45→17:08)
[2016-07-15] MEDS: HEPARIN 25,000 UNIT/500ML D5W 500 ML IV PRN ×4 (06:54→23:27)
[2016-07-15 07:19] VITALS: BP 147/84; PULSE 73; TEMP 36.7; O2SAT 98
[2016-07-15 08:09] LABS: HEMATOCRIT 37.3 % (37-47); MEAN CELL VOLUME 91.2 fL (80-100); MEAN CORPUSCULAR HEMOGLOBIN 30.6 pg (25-34); MEAN CORPUSCULAR HGB CONC 33.5 g/dl (32-36); MEAN PLATELET VOLUME 10.1 fL (7.4-10.4); PLATELET COUNT 240 K/uL (130-400); RED BLOOD COUNT 4.09 M/uL (4.2-5.4); WHITE BLOOD COUNT 8.28 K/uL (4.8-10.8)
[2016-07-15] MEDS: LISINOPRIL/HCTZ 20/12.5MG TAB PO SCH (10:01)
[2016-07-15] MEDS: MULTIVITAMIN TAB PO SCH (10:01)
--- NOTE | 2016-07-15 13:27 | Progress Note ---
Internal Med Progress Note Date of Service: Jul 15, 2016. Provider Documentation: SUBJECTIVE: The patient was seen and examined Right leg pain is much better Denies any Chest pain,palpitation.SOB OBJECTIVE: Vital Signs-as noted below Exam: General-No distress Eyes-normal ENT-normal Neck-Supple Lungs-clear to ausucltate bilaterally Heart-Regular,no murmur Abdomen-Benign,no masses,bowel sound present Extremities-Right Leg Cast Neuro-AAOx3 Lab data as noted below. ASSESSMENT & PLAN: EXTENSIVE RLE DVT No family history and or past h/o thrombosis Most likely provoked by recent ORIF right ankle 06/04/[address] Parr Hypercoagulable workup pending Start on IV heparin Will likely need 3 months of anticoagulation Clinically better Wants to try newer oral anticoagulant -Pros and cons discussed will await approval RECENT ANKLE SURGERY Likely the provocation factor for DVT Currently in walking cast Consult Dr. Parr HYPERTENSION BP elevated in ER likely due to anxiety Continue lisinopril-HCTZ BP remains stable ANXIETY/ DEPRESSION Not on medication currently FULL CODE Vital Signs: Date Time Temp Pulse Resp B/P Pulse Ox O2 Delivery O2 Flow Rate FiO2 07/15/16 08:36 Room Air 07/15/16 07:19 36.7 73 16 147/84 98 Room Air 07/14/16 23:40 Room Air 07/14/16 22:53 36.8 78 16 143/83 97 Room Air 07/14/16 22:30 160/90 07/14/16 21:35 Room Air 07/14/16 19:43 37.0 97 18 175/81 99 Room Air 07/14/16 19:14 97 20 180/105 97 Room Air 07/14/16 17:59 108 20 145/115 98 Room Air 07/14/16 16:25 82 20 100 Room Air 07/14/16 14:58 90 18 168/84 100 Room Air Lab Results: Results Past 24 Hours Test 07/14/16 16:23 07/15/16 00:50 07/15/16 07:43 Range/Units White Blood Count 10.11 8.28 4.8-10.8 K/uL Red Blood Count 4.38 4.09 4.2-5.4 M/uL Hemoglobin 13.8 12.5 12.0-16.0 g/dL Hematocrit 40.8 37.3 37-47 % Mean Corpuscular Volume 93.2 91.2 80-100 fL Mean Corpuscular Hemoglobin 31.5 30.6 25-34 pg Mean Corpuscular Hemoglobin Concent 33.8 33.5 32-36 g/dl Platelet Count 251 240 130-400 K/uL Mean Platelet Volume 10.5 10.1 7.4-10.4 fL Neutrophils (%) (Auto) 64.1 % Lymphocytes (%) (Auto) 30.0 % Monocytes (%) (Auto) 4.0 % Eosinophils (%) (Auto) 1.4 % Basophils (%) (Auto) 0.2 % Neutrophils # (Auto) 6.49 1.4-6.5 K/uL Lymphocytes # (Auto) 3.03 1.2-3.4 K/uL Monocytes # (Auto) 0.40 0.11-0.59 K/uL Eosinophils # (Auto) 0.14 0-0.5 K/uL Basophils # (Auto) 0.02 0-0.2 K/uL RDW Standard Deviation 44.8 43.7 36.4-46.3 fL RDW Coefficient of Variation 13.2 13.1 11.5-14.5 % Immature Granulocyte % (Auto) 0.3 % Immature Granulocyte # (Auto) 0.03 0.00-0.02 K/uL Prothrombin Time 10.4 9.0-12.0 SECONDS Prothromb Time International Ratio 1.0 0.9-1.1 Activated Partial Thromboplast Time 27.1 57.5 52.7 21.0-31.0 SECONDS Partial Thromboplastin Ratio 1.0 2.2 2.0 Sodium Level 141 136-145 mmol/L Potassium Level 3.9 3.5-5.1 mmol/L Chloride Level 103 98-107 mmol/L Carbon Dioxide Level 28 21-32 mmol/L Anion Gap 10.0 3-11 mmol/L Blood Urea Nitrogen 18 7-18 mg/dl Creatinine 0.87 0.60-1.20 mg/dl Est Creatinine Clear Calc Drug Dose 92.8 ml/min Estimated GFR () 83.9 Estimated GFR (Non- 72.4 BUN/Creatinine Ratio 20.7 10-20 Random Glucose 92 70-99 mg/dl Calcium Level 9.2 8.5-10.1 mg/dl Total Bilirubin 0.2 0.2-1 mg/dl Aspartate Amino Transf (AST/SGOT) 18 15-37 U/L Alanine Aminotransferase (ALT/SGPT) 24 12-78 U/L Alkaline Phosphatase 89 45-117 U/L Total Protein 8.2 6.4-8.2 gm/dl Albumin 4.0 3.4-5.0 gm/dl Globulin 4.2 2.5-4.0 gm/dl Albumin/Globulin Ratio 1.0 0.9-2 Folate 21.89 >5.38 ng/mL
[2016-07-15 15:03] VITALS: BP 137/80; PULSE 77; TEMP 36.7; O2SAT 99
--- NOTE | 2016-07-15 16:45 | ORTHOPEDIC CONSULTATION REPORT ---
DATE OF CONSULTATION: 07/15/2016 CHIEF COMPLAINT: Recent ORIF of a right ankle fracture, now hospitalized with a DVT. HISTORY OF PRESENT ILLNESS: The patient is a 60-year-old female. She is now about approximately 5 weeks out from an ORIF of right ankle fracture. She was treated with aspirin for about 1 month postop. She has been ambulating, weightbearing as tolerated in a short leg cast since we last saw her in the office. She, however, about 6 days ago developed some pain and discomfort in her thigh area. She has been taking ibuprofen some and came to the hospital yesterday she was found to have a superficial and deep vein thrombosis of the right lower extremity. She states she really is not having any ankle pain at this time. She has been started on heparin. She has no other complaints at this time. PAST MEDICAL HISTORY AND SURGICAL HISTORY: Reviewed and includes anxiety, history of a benign colon lesion, depression, ORIF of a right ankle fracture, superficial phlebitis, colonoscopy with polypectomy and a D\T\C. FAMILY HISTORY: Reviewed and includes asthma, hypertension. SOCIAL HISTORY: She is , lives with her family. Denies alcohol, tobacco or drug use. ALLERGIES: NAPROXEN. MEDICATIONS: Include aspirin, fish oil, lisinopril/HCTZ, lutein, multivitamins, selenium and ibuprofen. REVIEW OF SYSTEMS: Noncontributory. PHYSICAL EXAMINATION: The patient seen and examined by Dr. Parr today as well. Cast of the right lower is fitting appropriately. She is able to move her toes appropriately with flexion and extension. Neurovascularly intact. IMPRESSION: A 60-year-old female, now approximately 5 weeks status post open reduction internal fixation of a right ankle fracture with right lower extremity deep vein thrombosis. PLAN: She has been admitted to the hospitalist service, started on heparin and it does appear she will be anticoagulated now for about 3 months. Regarding her ankle, would like to leave her on a cast on. At this point, she is scheduled to follow up in next week in clinic for cast removal and x-rays of the right ankle. She can continue weightbearing as tolerated on the right lower extremity. Thank you for this consult. Please call with any further questions, .
[2016-07-15] MEDS ORDERED: NURSING VERBAL MED ORDER ONE (20:45)
[2016-07-15] MEDS ORDERED: DIPHENHYDRAMINE PO PRN (21:15)
[2016-07-15] MEDS ORDERED: ACETAMINOPHEN PO PRN (21:15)
[2016-07-15 22:54] VITALS: BP 125/75; PULSE 77; TEMP 36.7; O2SAT 95
[2016-07-16] MEDS ORDERED: CALCIUM CARBONATE 500 MG CHEWABLE PO STA (00:11)
[2016-07-16] MEDS: HEPARIN 25,000 UNIT/500ML D5W 500 ML IV PRN ×3 (01:24→09:11)
[2016-07-16] MEDS ORDERED: DIPHENHYDRAMINE ACETAMINOPHEN PO PRN (06:30)
[2016-07-16 07:36] LABS: MEAN CELL VOLUME 92.7 fL (80-100); MEAN CORPUSCULAR HEMOGLOBIN 31.1 pg (25-34); MEAN CORPUSCULAR HGB CONC 33.5 g/dl (32-36); MEAN PLATELET VOLUME 10.2 fL (7.4-10.4); PLATELET COUNT 219 K/uL (130-400); RED BLOOD COUNT 3.99 M/uL (4.2-5.4); WHITE BLOOD COUNT 7.63 K/uL (4.8-10.8)
[2016-07-16 07:48] VITALS: BP 148/68; PULSE 70; TEMP 36.6; O2SAT 96
[2016-07-16 08:00] VITALS: O2SAT 96
[2016-07-16] MEDS: MULTIVITAMIN TAB PO SCH (09:14)
[2016-07-16] MEDS: LISINOPRIL/HCTZ 20/12.5MG TAB PO SCH (09:14)
--- NOTE | 2016-07-16 12:09 | Progress Note ---
Internal Med Progress Note Date of Service: Jul 16, 2016. Provider Documentation: SUBJECTIVE: The patient was seen and examined Right leg pain is much better Denies any Chest pain,palpitation.SOB Ambulating well Ready to be discharged OBJECTIVE: Vital Signs-as noted below Exam: General-No distress Eyes-normal ENT-normal Neck-Supple Lungs-clear to ausucltate bilaterally Heart-Regular,no murmur Abdomen-Benign,no masses,bowel sound present Extremities-Right Leg Cast Swelling is better Neuro-AAOx3 Lab data as noted below. ASSESSMENT & PLAN: EXTENSIVE RLE DVT-superficial and Deep No family history and or past h/o thrombosis Most likely provoked by recent ORIF right ankle 06/04/[address] Parr Hypercoagulable workup pending Start on IV heparin Will likely need 3 months of anticoagulation Clinically better today -Pros and cons discussed about using Xarelto Discharge today on Xarelto RECENT ANKLE SURGERY Likely the provocation factor for DVT Currently in walking cast Consult Dr. Parr-appreciate input HYPERTENSION BP elevated in ER likely due to anxiety Continue lisinopril-HCTZ BP remains stable ANXIETY/ DEPRESSION Not on medication currently FULL CODE Vital Signs: Date Time Temp Pulse Resp B/P Pulse Ox O2 Delivery O2 Flow Rate FiO2 07/16/16 08:00 Room Air 07/16/16 08:00 96 Room Air 07/16/16 07:48 36.6 70 18 148/68 96 Room Air 07/16/16 00:38 Room Air 07/15/16 22:54 36.7 77 18 125/75 95 Room Air 07/15/16 16:30 Room Air 07/15/16 15:03 36.7 77 16 137/80 99 Room Air Lab Results: Results Past 24 Hours Test 07/16/16 07:21 Range/Units White Blood Count 7.63 4.8-10.8 K/uL Red Blood Count 3.99 4.2-5.4 M/uL Hemoglobin 12.4 12.0-16.0 g/dL Hematocrit 37.0 37-47 % Mean Corpuscular Volume 92.7 80-100 fL Mean Corpuscular Hemoglobin 31.1 25-34 pg Mean Corpuscular Hemoglobin Concent 33.5 32-36 g/dl RDW Standard Deviation 44.6 36.4-46.3 fL RDW Coefficient of Variation 13.2 11.5-14.5 % Platelet Count 219 130-400 K/uL Mean Platelet Volume 10.2 7.4-10.4 fL Activated Partial Thromboplast Time 51.6 21.0-31.0 SECONDS Partial Thromboplastin Ratio 2.0
[2016-07-16] MEDS ORDERED: XRL10 PO ×3 (13:03→17:52)
--- NOTE | 2016-07-16 13:06 | Discharge Instructions ---
Discharge Instructions Date of Service Jul 16, 2016. Admission Reason for Admission: DVT Discharge Discharge Diagnosis / Problem: Right Leg DVT Discharge Goals Goal(s): Prevent Disease Progression Activity Recommendations Activity Limitations: resume your previous activity (No strenuous activity) . Instructions / Follow-Up Instructions / Follow-Up Dr Atkinson on 07/22/16 at 11:20AM Current Hospital Diet Patient's current hospital diet: Regular Diet Discharge Diet Recommended Diet: Regular Diet Pending Studies Studies pending at discharge: no Medical Emergencies . Who to Call and When: Medical Emergencies: If at any time you feel your situation is an emergency, please call 911 immediately. . Non-Emergent Contact Non-Emergency issues call your: Primary Care Provider . . "Provider Documentation" section prepared by Donny Cano. VTE Core Measure Inpt VTE Proph given/why not?: Unfractionated heparin SQ (Xarelto)
[2016-07-16 13:40] VITALS: BP 148/68; PULSE 70; TEMP 36.6; O2SAT 96
[2016-07-16] MEDS ORDERED: RIVAROXABAN TAB 15 MG TAB PO ONE (14:00)
--- NOTE | 2016-07-16 17:52 | Discharge Summary ---
Discharge Summary Date of Service Jul 16, 2016. Discharge Summary Admission Date: Jul 14, 2016 at 17:06 Discharge Date: Jul 16, 2016 Discharge Disposition: Home Principal Diagnosis: Right Leg DVT Secondary Diagnoses/Problems: Please see H&P and Hospital Progress note Pending Studies/Follow-Up: Hypercoagulable tests results Medication Reconciliation New Medications: Rivaroxaban (Xarelto) 10 Mg Tab 2 TAB PO DAILY for 30 Days, #60 TAB Rivaroxaban (Xarelto) 10 Mg Tab 1.5 TAB PO DAILY for 14 Days, #21 TAB for 21 days Continued Medications: Fish Oil (Rangely-3) 1 Ea Cap 6 CAP PO DAILY, CAP Lisinopril/Hctz (Zestoretic 20MG/12.5MG) Tab 1 TAB PO QAM, TAB Lutein (Lutein) Unknown Strength Cap 1 TAB PO DAILY Multiple Vitamin (Multiple Vitamin) 1 Tab Tab 1 TAB PO DAILY Selenium (Ra Selenium) 50 Mcg Tab 3 TABS PO DAILY Discontinued Medications: Aspirin (Aspirin) 325 Mg Tab 650 MG PO DAILY Ibuprofen (Ibuprofen) 200 Mg Cap 400 MG PO Q6 PRN for Pain Admission Information HPI (per Admitting provider): This is a 60 year old female with PMH of superficial thrombophlebitis, GERD, anxiety, who presents to the ED for RLE discomfort. Patient recently underwent ORIF of right ankle fracture by Dr. Parr on 06/04/16. She was initially non- weight bearing x3 weeks but now ambulating around her house in a walking cast. Pt reports for past 5 days has discomfort in right inner thigh. She tried using compresses, PRN ibuprofen, and aspirin 650 mg daily. She initially was concerned for superficial thrombophlebitis which she had 5-7 episodes in the past. She is unsure if she was tested for hypercoagulable state. Had 1 episode trace red blood in the stool today after straining for hard BM last night. No black stool. States bowel habit alternates constipation and diarrhea. Reports h/ o hemorrhoids. Last colonoscopy in 2007 with hyperplastic polyps. Pt also reports rhinorrhea, itchy watery eyes, dry cough in the mornings attributed to seasonal allergies. Patient denies dizziness, fever, chills, chest pain, SOB, abdominal pain, nausea, vomiting, urinary changes, lower extremity edema. Past Medical/Surgical History Medical Problems: (1) Anxiety Status: Chronic (2) Benign neoplasm of colon Status: Chronic (3) Depression Status: Chronic (4) S/P ORIF (open reduction internal fixation) fracture Permanent Comment: right ankle 06/04/16 Dr. Parr Status: Chronic (5) Superficial thrombophlebitis Status: Chronic Surgical Problems: (1) S/P colonoscopy with polypectomy Status: Chronic (2) S/P dilation and curettage Status: Chronic Family History Asthma Hypertension MOTHER BROTHER SISTER Denies family history of VTE. Social History Smoking Status: Never Smoker Alcohol Use: none Drug Use: none Marital Status: Housing status: lives with family Multi-Drug Resistant Organisms History of MDRO: No Allergies Coded Allergies: Naproxen (Verified Allergy, Intermediate, HIVES, 07/14/16) Home Medications Scheduled Aspirin (Aspirin), 650 MG PO DAILY Fish Oil (Rangely-3), 6 CAP PO DAILY Lisinopril/Hctz (Zestoretic 20MG/12.5MG), 1 TAB PO QAM Lutein (Lutein), 1 TAB PO DAILY Multiple Vitamin (Multiple Vitamin), 1 TAB PO DAILY Selenium (Ra Selenium), 3 TABS PO DAILY Scheduled PRN Ibuprofen (Ibuprofen), 400 MG PO Q6 PRN for Pain Review of Systems Ten point ROS performed with pertinent positives and negatives noted in HPI. Physical Ex - H&P Physical Exam Vital Signs Date Time Temp Pulse Resp B/P Pulse Ox O2 Delivery O2 Flow Rate FiO2 07/14/16 14:58 90 18 168/84 100 Room Air 07/14/16 12:50 36.5 74 18 170/88 98 Room Air General Appearance: + obese, + pertinent finding (alert cooperative mildly anxious 60 year old female with at bedside who is supportive) Head: normocephalic, atraumatic Eyes: normal inspection, PERRL ENT: hearing grossly normal, TMs normal, pharynx normal Neck: supple, trachea midline Respiratory/Chest: lungs clear, normal breath sounds, no respiratory distress, no accessory muscle use Cardiovascular: regular rate, rhythm, no murmur Abdomen/GI: normal bowel sounds, non tender, soft Extremities/Musculoskelatal: + pertinent finding (no reproducible tenderness on right upper thigh. no palpable cord. no swelling noted of right upper leg. right lower leg cast in place. LLE no edema or calf tenderness. ) Neurologic/Psych: alert, normal mood/affect, oriented x 3, + pertinent finding (grossly nonfocal ) Skin: normal color, warm/dry Diagnostics - H&P Diagnostics Laboratory Results Results Past 24 Hours Test 07/14/16 16:23 Range/Units White Blood Count 10.11 4.8-10.8 K/uL Red Blood Count 4.38 4.2-5.4 M/uL Hemoglobin 13.8 12.0-16.0 g/dL Hematocrit 40.8 37-47 % Mean Corpuscular Volume 93.2 80-100 fL Mean Corpuscular Hemoglobin 31.5 25-34 pg Mean Corpuscular Hemoglobin Concent 33.8 32-36 g/dl Platelet Count 251 130-400 K/uL Mean Platelet Volume 10.5 7.4-10.4 fL Neutrophils (%) (Auto) 64.1 % Lymphocytes (%) (Auto) 30.0 % Monocytes (%) (Auto) 4.0 % Eosinophils (%) (Auto) 1.4 % Basophils (%) (Auto) 0.2 % Neutrophils # (Auto) 6.49 1.4-6.5 K/uL Lymphocytes # (Auto) 3.03 1.2-3.4 K/uL Monocytes # (Auto) 0.40 0.11-0.59 K/uL Eosinophils # (Auto) 0.14 0-0.5 K/uL Basophils # (Auto) 0.02 0-0.2 K/uL RDW Standard Deviation 44.8 36.4-46.3 fL RDW Coefficient of Variation 13.2 11.5-14.5 % Immature Granulocyte % (Auto) 0.3 % Immature Granulocyte # (Auto) 0.03 0.00-0.02 K/uL Prothrombin Time 10.4 9.0-12.0 SECONDS Prothromb Time International Ratio 1.0 0.9-1.1 Activated Partial Thromboplast Time 27.1 21.0-31.0 SECONDS Partial Thromboplastin Ratio 1.0 Diagnostic Radiology RIGHT LOWER EXTREMITY VENOUS DOPPLER HISTORY: right medial thigh pain Right COMPARISON STUDY: None. FINDINGS: The right calf veins were obscured by the patient's overlapping cast. There are superficial thrombosed veins within the right popliteal fossa. Near occlusive thrombus seen within the right superficial femoral and right popliteal veins. The right proximal greater saphenous vein is also thrombosed. The right common femoral vein is patent. IMPRESSION: Superficial and deep vein thrombosis within the right lower extremity as described above. Impression - H&P Impression Assessment and Plan EXTENSIVE RLE DVT Most likely provoked by recent ORIF right ankle 06/04/[address] Parr Hypercoagulable workup pending Start on IV heparin Will likely need 3 months of anticoagulation May be candidate for factor Xa inhibitor RECENT ANKLE SURGERY Currently in walking cast Consult Dr. Parr HYPERTENSION BP elevated in ER likely due to anxiety Continue lisinopril-HCTZ ANXIETY/ DEPRESSION Not on medication currently FULL CODE Patient seen in collaboration with Dr. Weldon. Please see his addendum. Physical Exam (per Admitting): General Appearance: + obese, + pertinent finding (alert cooperative mildly anxious 60 year old female with at bedside who is supportive) Head: normocephalic, atraumatic Eyes: normal inspection, PERRL ENT: hearing grossly normal, TMs normal, pharynx normal Neck: supple, trachea midline Respiratory/Chest: lungs clear, normal breath sounds, no respiratory distress, no accessory muscle use Cardiovascular: regular rate, rhythm, no murmur Abdomen/GI: normal bowel sounds, non tender, soft Extremities/Musculoskelatal: + pertinent finding (no reproducible tenderness on right upper thigh. no palpable cord. no swelling noted of right upper leg. right lower leg cast in place. LLE no edema or calf tenderness. ) Neurologic/Psych: alert, normal mood/affect, oriented x 3, + pertinent finding (grossly nonfocal ) Skin: normal color, warm/dry Hospital Course EXTENSIVE RLE DVT-superficial and Deep No family history and or past h/o thrombosis Most likely provoked by recent ORIF right ankle 06/04/[address] Parr Hypercoagulable workup pending Start on IV heparin Will likely need 3 months of anticoagulation Clinically better today -Pros and cons discussed about using Xarelto Discharge today on Xarelto RECENT ANKLE SURGERY Likely the provocation factor for DVT Currently in walking cast Consult Dr. Parr-appreciate input HYPERTENSION BP elevated in ER likely due to anxiety Continue lisinopril-HCTZ BP remains stable ANXIETY/ DEPRESSION Not on medication currently FULL CODE Total time spent on discharge = 35 minutes This includes examination of the patient, discharge planning, medication reconciliation, and communication with other providers. Discharge Instructions Date of Service Jul 16, 2016. Admission Reason for Admission: DVT Discharge Discharge Diagnosis / Problem: Right Leg DVT Discharge Goals Goal(s): Prevent Disease Progression Activity Recommendations Activity Limitations: resume your previous activity (No strenuous activity) . Instructions / Follow-Up Instructions / Follow-Up Dr Atkinson on 07/22/16 at 11:20AM Current Hospital Diet Patient's current hospital diet: Regular Diet Discharge Diet Recommended Diet: Regular Diet Pending Studies Studies pending at discharge: no Medical Emergencies . Who to Call and When: Medical Emergencies: If at any time you feel your situation is an emergency, please call 911 immediately. . Non-Emergent Contact Non-Emergency issues call your: Primary Care Provider . . "Provider Documentation" section prepared by Donny Cano. VTE Core Measure Inpt VTE Proph given/why not?: Unfractionated heparin SQ (Xarelto) <Electronically signed by Donny Cano M.D.> Signed: 07/16/16 4272 Additional Copies To Dilshad Atkinson M.D.
[2016-07-17] MEDS ORDERED: RIVAROXABAN TAB 15 MG TAB PO SCH (09:00)
[2016-07-21 11:27] LABS: ANTITHROMBINIII ACTIVITY** 126 % activity (80-120); B2 GLYCOPROTEIN IGA <9 SAU (<=20); B2 GLYCOPROTEIN IGG <9 SGU (<=20); B2 GLYCOPROTEIN IGM <9 SMU (<=20); DRVVT MIX INTERPRETAION Not Indicated; LAC PTT SCREEN 33 sec (<=40); PHOSPHATIDYLSERINE IGA <20 U/mL (<20); PHOSPHATIDYLSERINE IGG <10 U/mL (<10); PHOSPHATIDYLSERINE IGM <25 U/mL (<25); PROTEIN C ACTIVITY** TC 1777X >200 % (70-180); PROTEIN S ACT(FUNCT)**1779X 117 % (60-140)
== END 2016-07-16 14:32 | disposition home or self-care (01) | DRG 315 ==
LOC: ENRESERVTM → CANRESERV → ENRESERVDT → C.EDB 12:47 → C.MSW 17:06 → EDBEDREQSVC 17:34
PROVIDERS: ADMIT Internal Medicine; ATTEND Internal Medicine
DX: I97.89 Other postprocedural complications and disorders of the circulatory system, not elsewhere classified (principal); I82.811 Embolism and thrombosis of superficial veins of right lower extremity; I82.432 Acute embolism and thrombosis of left popliteal vein; Z82.49 Family history of ischemic heart disease and other diseases of the circulatory system; Z82.5 Family history of asthma and other chronic lower respiratory diseases; I10 Essential (primary) hypertension; Z79.82 Long term (current) use of aspirin; Z86.718 Personal history of other venous thrombosis and embolism; F41.9 Anxiety disorder, unspecified; F32.9 Major depressive disorder, single episode, unspecified

== ENCOUNTER → 2016-10-01 | Outpatient (CLI) | payer OTHER ==
[~2016-10-01] MED LIST changes: -ASPEC325 PO; +LUTE1CAP6 PO; +MULTTAB45 PO; -PERCOCET PO; +SELE50TA PO; +XRL10 PO; -[UNRECOGNIZED DRUG - CODE] PO
--- NOTE | 2016-10-02 09:07 | MAMMOGRAPHY REPORT ---
BILATERAL DIGITAL SCREENING MAMMOGRAM WITH CAD: 10/01/2016 CLINICAL HISTORY: Routine screening. Patient has no complaints. TECHNIQUE: Bilateral CC, MLO and repeat MLO views were obtained. Current study was also evaluated wi th a Computer Aided Detection (CAD) system. COMPARISON: Comparison is made to exams dated: 09/26/2015 mammogram, 07/26/2014 mammogram, 07/20/2013 ma mmogram, 07/14/2012 mammogram, 07/02/2011 mammogram, and 06/19/2010 mammogram - [facility] er. BREAST COMPOSITION: There are scattered areas of fibroglandular density in both breasts. FINDINGS: There is a stable lobulated and circumscribed 9 mm mass in the right upper outer quadrant, and a stable tiny cluster of microcalcifications in the left upper outer quadrant, both of which have been stable on prior mammograms dating back to at least 06/30/2007, therefore likely benign. No new suspicious mass, architectural distortion or cluster of microcalcifications is seen. IMPRESSION: ACR BI-RADS CATEGORY 1: NEGATIVE There is no mammographic evidence of malignancy. A 1 year screening mammogram is recommended. The pa tient will receive written notification of the results. Approximately 10% of breast cancers are not detected with mammography. A negative mammographic report should not delay biopsy if a clinically suggestive mass is present. Jud Allan M.D. ay/:10/01/2016 17:34:18 Professor Of Languages: Madelyn Younger, [facility] letter sent: Normal 1/2 BI-RADS Code: ACR BI-RADS Category 1: Negative
== END | disposition home or self-care (01) ==
LOC: C.MAMM 17:12
PROVIDERS: ATTEND Family Medicine
DX: Z12.31 Encounter for screening mammogram for malignant neoplasm of breast (principal)

== ENCOUNTER → 2017-12-02 | Outpatient (CLI) | payer OTHER ==
--- NOTE | 2017-12-03 15:10 | MAMMOGRAPHY REPORT ---
BILATERAL DIGITAL SCREENING MAMMOGRAM TOMOSYNTHESIS WITH CAD: 12/02/2017 CLINICAL HISTORY: Routine screening. Patient has no complaints. TECHNIQUE: Breast tomosynthesis in addition to standard 2D mammography was performed. Current study w as also evaluated with a Computer Aided Detection (CAD) system. COMPARISON: Comparison is made to exams dated: 10/01/2016 mammogram, 09/26/2015 mammogram, 07/26/2014 m ammogram, 07/20/2013 mammogram, 07/14/2012 mammogram, and 07/02/2011 mammogram - [facility]. BREAST COMPOSITION: There are scattered areas of fibroglandular density in both breasts. FINDINGS: No suspicious masses, calcifications, or areas of architectural distortion are noted in either breast . There has been no significant interval change compared to prior exams. Small benign-appearing mass in the right upper outer quadrant is stable dating back to at least the 2007 exam. Other bilateral nodularity stable. A biopsy clip is again noted within the left upper outer quadrant. IMPRESSION: ACR BI-RADS CATEGORY 2: BENIGN There is no mammographic evidence of malignancy. A 1 year screening mammogram is recommended.( [id number]) The patient will receive written notification of the results. Some breast cancers are not detected with mammography. A negative mammographic report should not juan r y biopsy if a clinically suggestive mass is present. Jessica Forde M.D. ah/:12/02/2017 16:04:15 Plant Reliability Engineer: Blossom Veronica RT(R)(M), [facility] letter sent: Normal 1/2 BI-RADS Code: ACR BI-RADS Category 2: Benign
== END | disposition home or self-care (01) ==
LOC: C.MAMM 15:17
PROVIDERS: ATTEND Family Medicine
DX: Z12.31 Encounter for screening mammogram for malignant neoplasm of breast (principal)